=== PATIENT | female | born 1965 | race Caucasian/White ===

== ENCOUNTER → 2020-11-19 | Day surgery (SDC) | payer BC ==
[~2020-11-19] VITALS: Ht 167.6 cm; Wt 114.8 kg
[~2020-11-19] MED LIST: CETIRIZINE HCL10 MG PO; CRESTOR 10 MG T10 MG PO; ECOTRIN81 MG PO; FAMOTIDINE20 MG PO; FENOFIBRATE145 MG PO; FUROSEMIDE20 MG PO; GABAPENTIN300 MG PO; HYDROCODON-ACE1 EAC4 PO; MELOXICAM15 MG PO; METFORMIN HCL500 MG PO; METOPROLOL TART50 MG PO
== END | disposition home or self-care (01) ==
LOC: OR 07:08
DX: G56.01 Carpal tunnel syndrome, right upper limb (principal); E11.40 Type 2 diabetes mellitus with diabetic neuropathy, unspecified; I10 Essential (primary) hypertension; K21.9 Gastro-esophageal reflux disease without esophagitis; M19.90 Unspecified osteoarthritis, unspecified site; E78.5 Hyperlipidemia, unspecified; E66.01 Morbid (severe) obesity due to excess calories; Z87.891 Personal history of nicotine dependence; Z68.41 Body mass index [BMI] 40.0-44.9, adult; Z79.82 Long term (current) use of aspirin; Z79.891 Long term (current) use of opiate analgesic; Z79.84 Long term (current) use of oral hypoglycemic drugs; Z79.899 Other long term (current) drug therapy
CPT/HCPCS: 82962; J1100; J1885; J2001; J2250; J2370; J2405; J2704; J3010; J7120